=== PATIENT | female | born 1990 | race Two or more races ===

== ENCOUNTER 2025-03-14 11:20 | Emergency (ER) | payer OTHER ==
[~2025-03-14] VITALS: Ht 160 cm; Wt 69.2 kg
[2025-03-14 11:33] VITALS: BP 143/88; PULSE 111; RESP 16; TEMP 98; O2SAT 100
--- NOTE | 2025-03-14 12:03 | ED.PDOC ---
PEDIATRIC ONCOLOGY NURSE HPI Comments 34y M who presents to the ED for chief complaint of vaginal spotting. Pt states she has been having vaginal spotting for the past 6 days and states she took test 1x days prior and it came back + and pt came to the ED today for further evaluation. Pt has associated nausea and mild cramping but otherwise denies any other symptoms. Pt otherwise denies any other symptoms at this time. Time Seen by MD: 11:59 Reviewed Notes: Nurses Notes, Medications, Allergies Allergies: Coded Allergies: NO KNOWN ALLERGIES (Unverified , 03/14/25) Information Source: Patient Mode of Arrival: Ambulatory Brought in by: self Timing: Hours Prehospital treatment: None Severity: Moderate Vaginal Discharge: None Vaginal Lesions: None Vaginal Mass: None Onset Of Mass/Bleeding: Spontaneous Sexual Activity: Last Consensual [place]: Unknown Control: None Blood Type: Unknown Symptoms of Possible : None Post Assault: Done Nothing Associated Signs and Symptoms: Abdominal Pain, N/V, Cramping Past Medical History PAST MEDICAL HISTORY: Denies Surgical History (Other): breast augmentation 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 Hx Family History Family History: Family hx of DM, Family hx of heart mela Social History Smoker: Non-Smoker Alcohol: Denies ETOH Use Drugs: Denies Drug Use Lives In: Home Constitutional: denies: chills, diaphoresis, fatigue, fever, malaise, sweats, weakness, others EENTM: denies: blurred vision, double vision, ear bleeding, ear discharge, ear drainage, ear pain, ear ringing, eye pain, eye redness, hearing loss, mouth pain, mouth swelling, nasal discharge, nose bleeding, nose congestion, nose pain, photophobia, tearing, throat pain, throat swelling, voice changes, others Respiratory: denies: cough, hemoptysis, orthopnea, SOB at rest, shortness of breath, SOB with excertion, stridor, wheezing, others Cardiovascular: denies: chest pain, dizzy spells, diaphoresis, Dyspnea on exertion, edema, irregular heart beat, left arm pain, lightheadedness, palpitations, PND, syncope, others Gastrointestinal: reports: abdominal pain, nausea, vomiting; denies: abdomen distended, blood streaked bowels, constipated, diarrhea, dysphagia, difficulty swallowing, hematemesis, melena, poor appetite, poor fluid intake, rectal bleeding, rectal pain, others Genitourinary: denies: abnormal vagina bleeding, burning, dyspareunia, dysuria, flank pain, frequency, hematuria, incontinence, pain, , vagina discharge, urgency, others Neurological: denies: dizziness, fainting, headache, left sided numbness, left sided weakness, numbness, paresthesia, pre-existing deficit, right sided numbness, right sided weakness, seizure, speech problems, tingling, tremors, weakness, others Musculoskeletal: denies: back pain, gout, joint pain, joint swelling, muscle pain, muscle stiffness, neck pain, others Integumetry: denies: bruises, change in color, change in hair/nails, dryness, laceration, lesions, lumps, rash, wounds, others Allergic/Immunocompromised: denies: Difficulty Healing, Frequent Infections, Hives, Itching, others Hematologic/Lymphatic: denies: anemia, blood clots, easy bleeding, easy bruising, swollen glands, others Endocrine: denies: excessive hunger, excessive sweating, excessive thirst, excessive urination, flushing, intolerance to cold, intolerance to heat, unexp lained weight gain, unexplained weight loss, others Psychiatric: denies: anxiety, bipolar disorder, depression, hopeless, panic disorder, schizophrenia, sleepless, suicidal, others All Other Systems: Reviewed and Negative Physical Exam General Appearance: Moderate Distress HEENT: Normal ENT Inspection, Pharynx Normal, TMs Normal Neck: Full Range of Motion, Non-Tender, Normal, Normal Inspection Respiratory: Chest Non-Tender, Lungs Clear, No Accessory Muscle Use, No Respiratory Distress, Normal Breath Sounds Cardiovascular: No Edema, No JVD, No Murmur, No Gallop, Normal Peripheral Pulses, Regular Rate/Rhythm Breast Exam: Deferred Gastrointestinal: No Organomegaly, Non Tender, No Pulsatile Mass, Normal Bowel Sounds, Soft Genitalia: Deferred Pelvic: Deferred Rectal: Deferred Extremities: No calf tenderness, Normal capillary refill, Normal inspection, Normal range of motion, Non-tender, No pedal edema Musculoskeletal : Apperance: Normal Neurologic: Alert, conduit mechanic II-XII nml as Tested, No Motor Deficits, Normal Affect, Normal Mood, No Sensory Deficits Cerebellar Function: Normal Reflexes: Normal Skin: Dry, Normal Color, Warm Lymphatic: No Adenopathy Was a procedure done? Was a procedure done?: No Differential Diagnosis ([employer]FINING EQUIPMENT OPERATOR) Vaginal Bleeding: Blood Loss Anemia Vaginal Discharge: Physiologic Discharge, , UTI X-Ray, Labs, Meds, VS Vital Signs Date Time Temp Pulse Resp B/P (MAP) Pulse Ox O2 Delivery O2 Flow Rate FiO2 03/14/25 11:33 98.0 111 16 143/88 (106) 100 98.0 Lab Test 03/14/25 13:58 03/14/25 11:50 Range/Units Urine Color Colorless Yellow Urine Clarity Clear Clear Urine pH 6.5 5.0-9.0 Urine Specific [place] 1.009 1.001-1.035 Urine Protein Negative Negative Urine Ketones Negative Negative Urine Blood 3+ H Negative /uL Urine Nitrite Negative Negative Urine Bilirubin Negative Negative Urine Urobilinogen Normal Negative mg/dL Urine Leukocyte Esterase 2+ Negative /uL Urine RBC 1 0 - 4 /hpf Urine Microscopic WBC 5 0-5 /HPF Urine Squamous Epithelial Cells Few <5 /hpf Urine Bacteria Few H None Seen /hpf Urine Glucose Normal Normal mg/dL Beta HCG, Quantitative 88732.5 H 1.5-4.2 mIU/mL The urine test is positive [place] [address] The ultrasound of the pelvis shows: IMPRESSION: Gestational sac is visualized in the endometrial cavity measuring 0.9 cm. Yolk sac is visualized. No pole or heart rate is detected at this time. Small subchorionic hematoma measuring 0.4 cm. Recommend correlation with beta HCG and short-term follow-up pelvic ultrasound. We attempted to further evaluate the patient but the patient has eloped Images Reviewed?: Images reviewed and evaluated by me Time of 1ST Reevaluation: 12:30 Reevaluation 1ST: Unchanged Patient Education/Counseling: Diagnosis, Treatment, Prognosis Family Education/Counseling: No Family Present Departure 1 Departure Time of Disposition: 20:04 Impression: Primary Impression: UTI in Qualified Codes: O23.40 - Unspecified infection of urinary tract in , unspecified trimester Additional Impression: Threatened Disposition: 07 LEFT AWOL/ELOPED Condition: Fair Critical Care Note Critical Care Time?: No Stability Stability form required: No Heart Score Heart Score: Heart Score Response (Comments) Value History N/A 0 EKG N/A 0 Age N/A 0 Risk Factors N/A 0 Troponin N/A 0 Total 0 I personally scribed for VIRAL MCMILLAN MD ([email or web address]) on 03/14/25 at 12:03. Electronically submitted by Tate Don ([email or web address]). VIRAL MCMILLAN MD Mar 14, 2025 12:03
[2025-03-14 14:06] LABS: Urine Bacteria FEW /hpf (None Seen); Urine Blood 3+ /uL (Negative); Urine Clarity Clear (Clear); Urine Color Colorless (Yellow); Urine Protein, UAD Negative (Negative); Urine Specific Gravity 1.009 (1.001-1.035); Urine Squamous Epithelial Cell FEW /hpf (<5); Urine Urobilinogen Normal (Negative); Urine WBC 5 /HPF (0-5); Urine pH 6.5 (5.0-9.0)
--- NOTE | 2025-03-14 14:28 | DVH ---
OB ULTRASOUND <14 WEEKS: HISTORY: pain and bleeding TECHNIQUE: Multiple real-time grayscale sonographic images of the pelvis with duplex Doppler color f low, spectral and M-mode analysis. TRANSDUCERS: Transabdominal and transvaginal. FINDINGS: The uterus measures 10.9 x 6.7 x 6.3 cm. The cervix not well visualized. Right ovary is not well visualized due to obscuration from bowel gas. Left ovary measures 3.4 x 2.0 x 1.1 cm with normal Doppler color flow Gestational sac is visualized in the endometrial cavity measuring 0.9 cm. Yolk sac is visualized. No pole or heart rate is detected at this time. Small subchorionic hematoma measuring 0.4 cm. IMPRESSION: Gestational sac is visualized in the endometrial cavity measuring 0.9 cm. Yolk sac is visualized. No pole or heart rate is detected at this time. Small subchorionic hematoma measuring 0.4 cm. Recommend correlation with beta HCG and short-term follow-up pelvic ultrasound.
== END 2025-03-14 13:52 | disposition left against medical advice (07) ==
LOC: ER 11:25
DX: O20.0 Threatened abortion (principal); O23.41 Unspecified infection of urinary tract in pregnancy, first trimester; O21.9 Vomiting of pregnancy, unspecified; O26.891 Other specified pregnancy related conditions, first trimester; R10.2 Pelvic and perineal pain; R10.9 Unspecified abdominal pain; Z98.890 Other specified postprocedural states; Z3A.01 Less than 8 weeks gestation of pregnancy; Z53.29 Procedure and treatment not carried out because of patient's decision for other reasons
CPT/HCPCS: 36415; 76801; 76817; 81001; 84702